=== PATIENT | male | born 1950 | race Caucasian/White ===

== ENCOUNTER 2020-10-10 17:45 | Emergency (ER) | payer OTHER, BC ==
[~2020-10-10] VITALS: Ht 188 cm; Wt 127.0 kg
== END 2020-10-10 19:16 | disposition home or self-care (01) ==
LOC: ER 17:45
DX: M79.662 Pain in left lower leg (principal); E11.9 Type 2 diabetes mellitus without complications; I10 Essential (primary) hypertension
CPT/HCPCS: 93971; 99283-25